=== PATIENT | male | born 1995 | race Two or more races ===

== ENCOUNTER 2018-01-26 03:30 | Emergency (ER) | payer SELFPAY ==
[~2018-01-26] VITALS: Ht 182.9 cm; Wt 79.1 kg
[~2018-01-26 03:30] MED LIST: VIVANCE PO
[2018-01-26 04:42] LABS: CHLORIDE 105 mEq/L (99-109); POTASSIUM 4.1 mEq/L (3.7-5.4); SODIUM 139 mEq/L (136-147)
[2018-01-26 04:43] LABS: GLUCOSE 102 mg/dL (70-99)
[2018-01-26 04:44] LABS: HEMATOCRIT 41.3 % (38.0-50.0); HEMOGLOBIN 14.9 G/DL (12.5-16.6); MCH 31.6 PG (29.0-34.0); MCHC 36.1 G/DL (30.0-36.0); MCV 87.5 FL (86-99); PLATELET COUNT 283 K/uL (156-360); RBC DIS.WIDTH-CV 12.3 % (11.8-14.6); RBC DIS.WIDTH-SD 39.4 % (39-53); RED BLOOD COUNT 4.72 M/uL (4.00-5.50); WHITE BLOOD COUNT 8.8 K/uL (4.1-10.2)
[2018-01-26 04:47] LABS: GFR ESTIMATE (CALCULATED) > 59 mL/min/ (58.99-99999)
[2018-01-26 04:48] LABS: UREA NITROGEN (BUN) 11 mg/dL (9-23)
[2018-01-26 04:56] LABS: TROP-I INTERPRETATION NEGATIVE; TROPONIN-I < 0.01 ng/mL (0.0-0.30)
[2018-01-26 05:15] VITALS: BP 101/67
== END 2018-01-26 05:15 | disposition home or self-care (01) ==
LOC: EME 03:30
DX: M94.0 Chondrocostal junction syndrome [Tietze] (principal); R56.9 Unspecified convulsions; F90.9 Attention-deficit hyperactivity disorder, unspecified type; F17.200 Nicotine dependence, unspecified, uncomplicated
CPT/HCPCS: 71046; 80048; 84484; 85027; 93005; 99281; 99285